=== PATIENT | male | born 1980 | race Caucasian/White ===

== ENCOUNTER 2018-08-17 09:03 | Emergency (ER) | payer SELFPAY ==
[~2018-08-17] VITALS: Ht 172.7 cm; Wt 63.5 kg
--- OUTSIDE RECORDS SUMMARY | 2018-08-17 09:08 | XMS REPORT | Referral Summary ---
Author Organization Unknown Address Unknown Phone Unavailable Care Team Providers Care Spool Sander Name Role Phone No PCP, Pt States PCP Encounter VC Date(s): 04/15/14 - 04/15/14 [facility] [address] [place] [id number] Discharge Diagnosis: Eye foreign body Discharge Disposition: Home or Self Care Attending Physician: Moshe Park MD Admitting Physician: Moshe Park MD Referring Physician: No PCP, Pt States Vital Signs Most recent to 1 oldest [Reference Range]: Temperature Temporal 36.1 degC Artery [36.3-37.8 *LOW* degC] (04/15/14 1:46 PM) Peripheral Pulse 72 bpm Rate [60-100 bpm] (04/15/14 3:13 PM) Respiratory Rate 16 br/min [14-20 br/min] (04/15/14 3:13 PM) Blood Pressure 132/85 mmHg [90-140/60-90 mmHg] (04/15/14 3:13 PM) Most recent to 1 oldest [Reference Range]: SpO2 99 % (04/15/14 3:13 PM) Problem List Condition Effective Dates Status Health Status Informant Tobacco Active patient user(Confirmed) Allergies, Adverse Reactions, Alerts No Known Medication Allergies Medications erythromycin 0.5% ophthalmic ointment 1 tono, Eye-Right, QID, apply to inside lower lid of affected eye(s), X 7 days, # 4 g, 0 Refill(s) Special Instructions: apply to inside lower lid of affected eye(s) Start Date: 04/15/14 Stop Date: 04/22/14 Status: Ordered Worth 5 mg-325 mg oral tablet 1 tabs, Oral, q6hr, as needed for pain, # 12 tabs, 0 Refill(s) Start Date: 04/15/14 Stop Date: 04/26/14 Status: Ordered Results No data available for this section Immunizations Vaccine Date Refusal Reason tetanus/diphth/pertuss (Tdap) adult/adol 04/15/14 Procedures No data available for this section Social History Social History Type Response Smoking Status Current every day smoker Assessment and Plan No data available for this section
--- OUTSIDE RECORDS SUMMARY | 2018-08-17 09:08 | XMS REPORT ---
Author Author POLLY CHRISTIANSON [facility] Address [address] [place] [address] Phone Unavailable Care Team Providers Care Stabber Name Role Phone POLLY CHRISTIANSON Unavailable Unavailable PROBLEMS Unknown Problems ALLERGIES No Known Allergies ENCOUNTERS Encounter Location Date Diagnosis [facility] [id number] [place] [phone] Sep, Wound cellulitis L03.90 ; Encounter for immunization Z23 ; Cellulitis of axilla, left L03.112 and Superficial burn T30.0 [facility] IN [facility] [id number] [place] [phone] Sep, [facility] [id number] [place] [phone] Sep, Oral infection K12.2 [facility] [address] [phone] Sep, [facility] IN [facility] [id number] [place] [phone] Aug, Oral infection K12.2 IMMUNIZATIONS Vaccine Route Administration Date Status TDAP (BOOSTRIX) IM Intramuscular Oct 10, 2017 Administered SOCIAL HISTORY Never Assessed REASON FOR VISIT Rash/ sores started about 2 weeks ago, fevers last couple days JStrasserRN PLAN OF CARE Activity Details Follow Up prn Reason: VITAL SIGNS Height 68 in 2017-10-10 Weight 139.8 lbs 2017-10-10 Temperature 98.9 degrees Fahrenheit 2017-10-10 Heart Rate 70 bpm 2017-10-10 Respiratory Rate 18 2017-10-10 BMI 21.25 kg/m2 2017-10-10 Blood pressure systolic 120 mmHg 2017-10-10 Blood pressure diastolic 80 mmHg 2017-10-10 MEDICATIONS Medication Instructions Dosage Frequency Start Date End Date Duration Status Tylenol 325 MG Orally every 4 hrs 1 tablet as needed 4h Active Clindamycin HCl 300 MG Orally Three times a day 1 capsule 8h Sep, Oct, 10 day(s) Active RESULTS No Results PROCEDURES Procedure Date Ordered Result Body Site TDAP (BOOSTRIX) Oct 10, 2017 SINGLE IMMUNIZATION ADMIN Oct 10, 2017 INSTRUCTIONS MEDICATIONS ADMINISTERED No Known Medications
--- OUTSIDE RECORDS SUMMARY | 2018-08-17 09:09 | XMS REPORT ---
Author Author SALLY JOHNSON Organization [facility] Address [address] [place] [address] Care Team Providers Care Chemical Process Engineer Name Role Phone SALLY JOHNSON Unavailable PROBLEMS Unknown Problems ALLERGIES No Information ENCOUNTERS Encounter Location Date Diagnosis [facility] [id number] [place] [phone] Sep, Wound cellulitis L03.90 ; Encounter for immunization Z23 ; Cellulitis of axilla, left L03.112 and Superficial burn T30.0 [facility] IN [facility] [id number] [place] [phone] Sep, [facility] [id number] [place] [phone] Sep, Oral infection K12.2 [facility] [address] [phone] Sep, [facility] IN [facility] [id number] [place] [phone] Aug, Oral infection K12.2 IMMUNIZATIONS No Known Immunizations SOCIAL HISTORY Never Assessed REASON FOR VISIT PLAN OF CARE VITAL SIGNS MEDICATIONS Medication Instructions Dosage Frequency Start Date End Date Duration Status Clindamycin HCl 300 MG Orally every 6 hrs 1 capsule 6h 10 days Active RESULTS No Results PROCEDURES No Known procedures INSTRUCTIONS MEDICATIONS ADMINISTERED No Known Medications
--- OUTSIDE RECORDS SUMMARY | 2018-08-17 09:09 | XMS REPORT ---
Author Author SALLY JOHNSON Organization [facility] Address [address] [place] [address] Care Team Providers Care Senior Research Project Manager Name Role Phone SALLY JOHNSON Unavailable PROBLEMS Unknown Problems ALLERGIES No Information ENCOUNTERS Encounter Location Date Diagnosis [facility] [id number] [place] [phone] Sep, Wound cellulitis L03.90 ; Encounter for immunization Z23 ; Cellulitis of axilla, left L03.112 and Superficial burn T30.0 [facility] [id number] [place] [phone] Sep, [facility] [id number] [place] [phone] Sep, Oral infection K12.2 [facility] [address] [address] Sep, [facility] [id number] [place] [phone] Aug, Oral infection K12.2 IMMUNIZATIONS No Known Immunizations SOCIAL HISTORY Never Assessed REASON FOR VISIT Tooth Abscess PLAN OF CARE VITAL SIGNS MEDICATIONS No Known Medications RESULTS No Results PROCEDURES No Known procedures INSTRUCTIONS MEDICATIONS ADMINISTERED No Known Medications
--- OUTSIDE RECORDS SUMMARY | 2018-08-17 09:09 | XMS REPORT ---
Author Author SALLY JOHNSON Organization [facility] Address [address] [place] [address] Care Team Providers Care Grinding Machine Tender Name Role Phone SALLY JOHNSON Unavailable PROBLEMS Unknown Problems ALLERGIES No Known Allergies ENCOUNTERS Encounter Location Date Diagnosis [facility] [address] [phone] Sep, Wound cellulitis L03.90 ; Encounter for immunization Z23 ; Cellulitis of axilla, left L03.112 and Superficial burn T30.0 [facility] [address] [phone] Sep, [facility] [id number] [place] [phone] Sep, Oral infection K12.2 [facility] [address] [phone] Sep, [facility] [address] [phone] Aug, Oral infection K12.2 IMMUNIZATIONS No Known Immunizations SOCIAL HISTORY Never Assessed REASON FOR VISIT tooth pain right lower and upper started last week [place], Has a dental tono t next week PLAN OF CARE Activity Details Follow Up 1 Week Reason: VITAL SIGNS Height 68 in 2017-09-10 Weight 145.2 lbs 2017-09-10 Temperature 98.6 degrees Fahrenheit 2017-09-10 Heart Rate 70 bpm 2017-09-10 Respiratory Rate 18 2017-09-10 BMI 22.08 kg/m2 2017-09-10 Blood pressure systolic 128 mmHg 2017-09-10 Blood pressure diastolic 90 mmHg 2017-09-10 MEDICATIONS Medication Instructions Dosage Frequency Start Date End Date Duration Status Ibuprofen 800 MG Orally Three times a day 1 tablet with food or milk as needed 8h Active Amoxicillin 500 MG Orally every 8 hrs 1 tablet 8h 10 day(s) Active Tylenol 325 MG Orally every 4 hrs 1 tablet as needed 4h Active RESULTS No Results PROCEDURES No Known procedures INSTRUCTIONS MEDICATIONS ADMINISTERED No Known Medications
--- OUTSIDE RECORDS SUMMARY | 2018-08-17 09:09 | XMS REPORT ---
Author Author SALLY JOHNSON Organization [facility] Address [address] [place] [address] Care Team Providers Care Transit Proof Machine Operator Name Role Phone SALLY JOHNSON Unavailable PROBLEMS Unknown Problems ALLERGIES No Information ENCOUNTERS Encounter Location Date Diagnosis [facility] [id number] [place] [phone] Sep, Wound cellulitis L03.90 ; Encounter for immunization Z23 ; Cellulitis of axilla, left L03.112 and Superficial burn T30.0 [facility] [id number] [place] [phone] Sep, [facility] [id number] [place] [phone] Sep, Oral infection K12.2 [facility] [address] [phone] Sep, [facility] [id number] [place] [phone] Aug, Oral infection K12.2 IMMUNIZATIONS No Known Immunizations SOCIAL HISTORY Never Assessed REASON FOR VISIT PLAN OF CARE VITAL SIGNS MEDICATIONS No Known Medications RESULTS No Results PROCEDURES No Known procedures INSTRUCTIONS MEDICATIONS ADMINISTERED No Known Medications
[2018-08-17 10:03] LABS: BASOPHILS % (AUTO) 0 % (0-10); EOSINOPHILS % (AUTO) 0 % (0-10); HEMATOCRIT 43 % (40-54); LYMPHOCYTES # (AUTO) 1.8 X 10^3 (1.0-4.0); LYMPHOCYTES % (AUTO) 34 % (12-44); MEAN CORPUSCULAR HEMOGLOBIN 30 PG (25-34); MEAN CORPUSCULAR HGB CONC 35 G/DL (32-36); MEAN CORPUSCULAR VOLUME 87 FL (80-99); MEAN PLATELET VOLUME 11.4 FL (7.4-10.4); MONOCYTES # (AUTO) 0.7 X 10^3 (0.0-1.0); MONOCYTES % (AUTO) 13 % (0-12); NEUTROPHILS # (AUTO) 2.7 X 10^3 (1.8-7.8); NEUTROPHILS % (AUTO) 52 % (42-75); PLATELET COUNT 116 10^3/uL (130-400); RED CELL DISTRIBUTION WIDTH 13.5 % (10.0-14.5); WHITE BLOOD COUNT 5.1 10^3/uL (4.3-11.0)
--- NOTE | 2018-08-17 10:04 | NUR ---
RT CALLED FOR BREATHING TX.
--- NOTE | 2018-08-17 10:09 | NUR ---
RT HERE FOR BREATHING TX.
[2018-08-17] MEDS ORDERED: RT-ALBUTEROL/IPRATROPIUM 3 ML (DUONEB) VIAL INH ONE (10:15)
[2018-08-17 10:21] LABS: ALANINE AMINOTRANSFERASE 21 U/L (0-55); ALBUMIN 4.1 GM/DL (3.2-4.5); ALKALINE PHOSPHATASE 94 U/L (40-136); BILIRUBIN,TOTAL 0.4 MG/DL (0.1-1.0); BUN/CREATININE RATIO 13; CARBON DIOXIDE 21 MMOL/L (21-32); CHLORIDE 101 MMOL/L (98-107); CREATININE SERUM 1.16 MG/DL (0.60-1.30); GFR ESTIMATED > 60; GLUCOSE 81 MG/DL (70-105); POTASSIUM 3.9 MMOL/L (3.6-5.0); SODIUM 134 MMOL/L (135-145); TOTAL PROTEIN 7.2 GM/DL (6.4-8.2)
[2018-08-17 10:25] LABS: ERYTHROCYTE SEDIMENTATION RATE 6 MM/HR (0-15)
[2018-08-17] MEDS ORDERED: NS IV 1000 ML 1,000 ML IV ONE (10:33)
[2018-08-17 10:42] LABS: GLUCOSE, URINE (UA) NEGATIVE (NEGATIVE)
[2018-08-17] MEDS ORDERED: KETOROLAC 30 MG/ML VIAL IVP ONE (10:45)
[2018-08-17 10:53] LABS: CLARITY,URINE CLEAR; COLOR,URINE YELLOW; KETONES,URINE 4+ (NEGATIVE); NITRITE,URINE NEGATIVE (NEGATIVE); PH,URINE 6 (5-9); PROTEIN,URINE 2+ (NEGATIVE)
[2018-08-17 10:54] LABS: BACTERIA,URINE NEGATIVE /HPF; BILIRUBIN,URINE 1+ (NEGATIVE); LEUKOCYTE ESTERASE ,URINE 1+ (NEGATIVE); UROBILINOGEN,URINE NORMAL (NORMAL); WBC,URINE RARE /HPF
--- NOTE | 2018-08-17 11:02 | Diagnostic Imaging Report ---
EXAM: PA and lateral chest at 10:25 p.m. INDICATION: Shortness of breath COMPARISON: There are no prior studies available for comparison. FINDINGS: The heart size is within normal limits. The lungs are clear, perhaps mildly hyperexpanded. This does raise the question of COPD. There is no evidence of failure, pneumonia or for a pleural effusion. The mediastinum is not widened. The osseous structures are intact. IMPRESSION: 1. There is no evidence for an acute cardiopulmonary abnormality. 2. The mild hyperexpansion of the lungs does raise the question of COPD. Clinical follow up is recommended. Dictated by: Dictated on workstation # [id number]
--- NOTE | 2018-08-17 11:50 | NUR ---
RESTING IN BED. STATES THE MEDS DID HELP WITH HIS PAIN. NOTIFIED HIM WE WERE WAITING ON DR TO LOOK AT IT ALL.
[2018-08-17] MEDS ORDERED: RT-ALBUINH IH (12:34)
[2018-08-17] MEDS ORDERED: DOXY100T2 PO (12:34)
--- NOTE | 2018-08-17 12:34 | ED General ---
General Chief Complaint: Head/Cervical Problems Stated Complaint: HEADACHE Nursing Triage Note: ARRIVED VIA AMB TO ROOM 09. COMPLAINS OF HEADACHE, BODYACHES, AND WANTING TO ONLY SLEEP. PT STATE HE HAS HAD MULTIPLE TICK BITES. Nursing Sepsis Screen: No Definite Risk Source of Information: Patient Exam Limitations: No Limitations Allergies and Home Medications Allergies Coded Allergies: No Known Drug Allergies (Unverified , 08/17/18) Past Pqmlepl-Hazltk-Oyzhhn Hx Patient Social History Alcohol Use: Denies Use Recreational Drug Use: No Smoking Status: Current Everyday Smoker Recent Foreign Travel: No Contact w/Someone Who Travel: No Recent Infectious Disease Expo: No Recent Hopitalizations: No Past Medical History Surgeries: No Respiratory: No Cardiac: No Neurological: No Genitourinary: No Gastrointestinal: No Musculoskeletal: No Endocrine: No HEENT: No Cancer: No Psychosocial: No Integumentary: No Physical Exam Vital Signs Vital Signs - First Documented 08/17/18 09:31 Temp 97.9 Pulse 78 Resp 16 B/P (MAP) 116/79 (91) Pulse Ox 97 O2 Delivery Room Air Capillary Refill : Less Than 3 Seconds Height, Weight, BMI Height: 5'8.00" Weight: 140lbs. oz. [id number]; BMI Method:Stated Progress/Results/Core Measures Suspected Sepsis Recent Fever Within 48 Hours: Yes Infection Criteria Present: Suspected New Infection New/Unexplained Altered Menta: No Sepsis Screen: No Definite Risk SIRS Temperature:97.9 Pulse: 78 Respiratory Rate: 16 Laboratory Tests 08/17/18 09:55: White Blood Count 5.1 Blood Pressure 116 /79 Mean: 91 Laboratory Tests 08/17/18 09:55: Creatinine 1.16, Platelet Count 116L, Total Bilirubin 0.4 Results/Orders Lab Results Laboratory Tests Test 08/17/18 09:55 08/17/18 10:32 Range/Units White Blood Count 5.1 4.3-11.0 10^3/uL Red Blood Count 5.02 4.35-5.85 10^6/uL Hemoglobin 15.0 13.3-17.7 G/DL Hematocrit 43 40-54 % Mean Corpuscular Volume 87 80-99 FL Mean Corpuscular Hemoglobin 30 25-34 PG Mean Corpuscular Hemoglobin Concent 35 32-36 G/DL Red Cell Distribution Width 13.5 10.0-14.5 % Platelet Count 116 L 130-400 10^3/uL Mean Platelet Volume 11.4 H 7.4-10.4 FL Neutrophils (%) (Auto) 52 42-75 % Lymphocytes (%) (Auto) 34 12-44 % Monocytes (%) (Auto) 13 H 0-12 % Eosinophils (%) (Auto) 0 0-10 % Basophils (%) (Auto) 0 0-10 % Neutrophils # (Auto) 2.7 1.8-7.8 X 10^3 Lymphocytes # (Auto) 1.8 1.0-4.0 X 10^3 Monocytes # (Auto) 0.7 0.0-1.0 X 10^3 Eosinophils # (Auto) 0.0 0.0-0.3 10^3/uL Basophils # (Auto) 0.0 0.0-0.1 10^3/uL Erythrocyte Sedimentation Rate 6 0-15 MM/HR Sodium Level 134 L 135-145 MMOL/L Potassium Level 3.9 3.6-5.0 MMOL/L Chloride Level 101 98-107 MMOL/L Carbon Dioxide Level 21 21-32 MMOL/L Anion Gap 12 5-14 MMOL/L Blood Urea Nitrogen 15 7-18 MG/DL Creatinine 1.16 0.60-1.30 MG/DL Estimat Glomerular Filtration Rate > 60 BUN/Creatinine Ratio 13 Glucose Level 81 70-105 MG/DL Calcium Level 9.0 8.5-10.1 MG/DL Corrected Calcium 8.9 8.5-10.1 MG/DL Total Bilirubin 0.4 0.1-1.0 MG/DL Aspartate Amino Transf (AST/SGOT) 50 H 5-34 U/L Alanine Aminotransferase (ALT/SGPT) 21 0-55 U/L Alkaline Phosphatase 94 40-136 U/L Total Creatine Kinase 344 H 30-200 U/L C-Reactive Protein High Sensitivity 10.32 H 0.00-0.50 MG/DL Total Protein 7.2 6.4-8.2 GM/DL Albumin 4.1 3.2-4.5 GM/DL Urine Color YELLOW Urine Clarity CLEAR Urine pH 6 5-9 Urine Specific [place] 1.020 1.016-1.022 Urine Protein 2+ H NEGATIVE Urine Glucose (UA) NEGATIVE NEGATIVE Urine Ketones 4+ H NEGATIVE Urine Nitrite NEGATIVE NEGATIVE Urine Bilirubin 1+ H NEGATIVE Urine Urobilinogen NORMAL NORMAL MG/DL Urine Leukocyte Esterase 1+ H NEGATIVE Urine RBC (Auto) 5+ H NEGATIVE Urine RBC 2-5 H /HPF Urine WBC RARE /HPF Urine Squamous Epithelial Cells NONE /HPF Urine Crystals NONE /LPF Urine Bacteria NEGATIVE /HPF Urine Casts NONE /LPF Urine Mucus SMALL H /LPF Urine Culture Indicated NO My Orders Orders - JERONIMO KENT MD Cbc With Automated Diff (08/17/18 09:54) Comprehensive Metabolic Panel (08/17/18 09:54) Hs C Reactive Protein (08/17/18 09:54) Ua Culture If Indicated (08/17/18 09:54) Erythrocyte Sedimentation Rate (08/17/18 09:54) Ed Iv/Invasive Line Start (08/17/18 09:54) Chest Pa/Lat (2 View) (08/17/18 10:02) Albuterol/Ipra Inhalation Soln (Duoneb I (08/17/18 10:15) Svn Small Volume Nebulizer (08/17/18 10:02) Ketorolac Injection (Toradol Injection) (08/17/18 10:45) Creatine Kinase (08/17/18 10:33) Ns Iv 1000 Ml (Sodium Chloride 0.9%) (08/17/18 10:33) Tick Panel With Lyme Eia (08/17/18 10:33) Medications Given in ED Current Medications Medications Dose Ordered Sig/Jaswant Route Start Time Stop Time Status Last Admin Dose Admin Albuterol/ Ipratropium 3 ml ONCE ONCE INH 08/17/18 10:15 08/17/18 10:16 DC 08/17/18 10:12 3 ML Ketorolac Tromethamine 15 mg ONCE ONCE IVP 08/17/18 10:45 08/17/18 10:46 DC 08/17/18 10:48 15 MG Sodium Chloride 1,000 ml @ 0 mls/hr Q0M ONCE IV 08/17/18 10:33 08/17/18 10:35 DC 08/17/18 10:48 1,000 MLS/HR Vital Signs/I&O 08/17/18 08/17/18 09:31 10:13 Temp 97.9 Pulse 78 Resp 16 B/P (MAP) 116/79 (91) Pulse Ox 97 97 O2 Delivery Room Air Room Air Capillary Refill : Less Than 3 Seconds Blood Pressure Mean: 91 Departure Impression Primary Impression: COPD exacerbation Additional Impressions: Acute dehydration Arthralgia Qualified Codes: M25.50 - Pain in unspecified joint Headache Qualified Codes: R51 - Headache Tick bites Qualified Codes: W57.XXXA - Bitten or stung by nonvenomous insect and other nonvenomous arthropods, initial encounter Disposition: 01 HOME, SELF-CARE Condition: Improved Departure-Patient Inst. Decision time for Depature: 12:31 Referrals: [facility] [place] ABELINO,LOCAL PHYSICIAN (PCP) Primary Care Physician Patient Instructions: COPD Including Emphysema (DC), Tickborne Encephalitis Add. Discharge Instructions: Rest in a cool place today and drink plenty of clear liquids. Drink plenty of clear liquids. Monitor your urine to make sure you are hydrating appropriately. Your urine should be light yellow to clear in color. Work toward quitting smoking as rapidly as possible. Seek help from a primary care provider if you're unable to. You may take ibuprofen up to 400 mg every 6 hours and/or Tylenol (acetaminophen) up to 650 mg every 6 hours as needed for pain. Complete the doxycycline antibiotic as prescribed. If the tick panel returns negative you may choose to stop the antibiotic. Doxycycline may cause sun sensitivity so be careful with your sun exposure. Return to the emergency room if you're having worsening symptoms. Follow-up with a primary care provider soon as possible. All discharge instructions reviewed with patient and/or family. Voiced understanding. Scripts Albuterol Sulfate (PROAIR HFA) 1 Puff Puff 2 PUFF IH Q4H PRN for WHEEZING, #1 EA 1 PUFF = 90 MCG Prov: JERONIMO KENT MD 08/17/18 Doxycycline Hyclate (Doxycycline Hyclate) 100 Mg Tablet 100 MG PO BID, #20 TAB 0 Refills Prov: JERONIMO KENT MD 08/17/18 JERONIMO KENT MD Aug 17, 2018 12:34
[2018-08-17 12:43] VITALS: BP 116/79
== END 2018-08-17 12:43 | disposition home or self-care (01) ==
LOC: ER 09:05
DX: T14.8XXA Other injury of unspecified body region, initial encounter (principal); R51 Headache; J44.1 Chronic obstructive pulmonary disease with (acute) exacerbation; E86.0 Dehydration; M25.50 Pain in unspecified joint; F17.200 Nicotine dependence, unspecified, uncomplicated; W57.XXXA Bitten or stung by nonvenomous insect and other nonvenomous arthropods, initial encounter
CPT/HCPCS: 36415; 71046; 80053; 81000; 82550; 85025; 85652; 86141; 86618; 86666; 86668; 86757; 94640; 96361; 96374